=== PATIENT | female | born 1965 | race Two or more races ===

== ENCOUNTER 2020-11-14 11:44 | Outpatient (CLI) | payer OTHER | END 2020-11-14 12:19 | disposition home or self-care (01) | LOC: MAMO-SONO 11:44 | DX: N60.02 Solitary cyst of left breast (principal); R92.0 Mammographic microcalcification found on diagnostic imaging of breast; Z12.31 Encounter for screening mammogram for malignant neoplasm of breast; N64.4 Mastodynia; N95.0 Postmenopausal bleeding ==

== ENCOUNTER 2022-03-24 14:01 | Outpatient (CLI) | payer OTHER | END 2022-03-24 14:02 | disposition home or self-care (01) | LOC: MAMO-SONO 14:01 | PROVIDERS: ATTEND Obstetrics & Gynecology | DX: N95.0 Postmenopausal bleeding (principal); R10.2 Pelvic and perineal pain; N60.11 Diffuse cystic mastopathy of right breast; N60.12 Diffuse cystic mastopathy of left breast ==

== ENCOUNTER → 2022-03-24 15:02 | Outpatient (CLI) | payer OTHER | END | disposition home or self-care (01) | LOC: NUCLEAR 03-09 15:00 | PROVIDERS: ATTEND Obstetrics & Gynecology | DX: M81.0 Age-related osteoporosis without current pathological fracture (principal) ==

== ENCOUNTER 2023-07-04 14:13 | Outpatient (CLI) | payer OTHER | END 2023-07-04 14:41 | disposition home or self-care (01) | LOC: MAMO-SONO 14:13 | PROVIDERS: ATTEND Obstetrics & Gynecology | DX: Z12.31 Encounter for screening mammogram for malignant neoplasm of breast (principal); N60.11 Diffuse cystic mastopathy of right breast; N60.12 Diffuse cystic mastopathy of left breast ==

== ENCOUNTER 2024-01-06 11:37 | Outpatient (CLI) | payer OTHER | END 2024-01-06 11:49 | disposition home or self-care (01) | LOC: SONOGRAMA 11:37 | PROVIDERS: ATTEND Surgery | DX: D24.2 Benign neoplasm of left breast (principal); N60.11 Diffuse cystic mastopathy of right breast; N60.12 Diffuse cystic mastopathy of left breast ==

== ENCOUNTER 2025-08-08 13:38 | Outpatient (CLI) | payer OTHER | END 2025-08-08 13:46 | disposition home or self-care (01) | LOC: MAMO-SONO 13:38 | PROVIDERS: ATTEND Surgery | DX: N60.11 Diffuse cystic mastopathy of right breast (principal); N60.12 Diffuse cystic mastopathy of left breast ==